=== PATIENT | female | born 1995 | race Caucasian/White ===

== ENCOUNTER 2021-06-18 14:24 | Emergency (ER) | payer BC ==
[~2021-06-18] VITALS: Ht 157.5 cm; Wt 66.5 kg
[2021-06-18 14:33] VITALS: BP 141/98
--- NOTE | 2021-06-18 14:47 | RAD ---
EXAM: Chest, single view. HISTORY: Chest pain. COMPARISON: None. FINDINGS: A frontal view of the chest is obtained. There is no infiltrate, pleural effusion or pneumo thorax. The heart is normal in size. IMPRESSION: No acute pulmonary finding. Electronically signed by: Diana Lares MD (06/18/2021 2:44 PM) [id number]
--- NOTE | 2021-06-18 14:48 | EKG ---
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
--- NOTE | 2021-06-18 14:56 | PHYS DOC ---
Past History Past Surgical History: No Surgical History Alcohol Use: None General Adult EDM: Chief Complaint: CHEST PAIN HPI: HPI: 25-year-old female presents with chest pain. She started to have chest pain at 7 PM last night while she was just sitting around. It was an intense pressure sensation just below her breast in the middle of her chest. She rated it an 8 out of 10 at that time. She thought taking some ibuprofen and it would go away, but the pain continued all night. The patient did not sleep well and the pain continued until 7 AM this morning. She is pain-free at this time. When she talked to her primary physician they advise she come here for evaluation. Patient has no previous cardiac history. She has had heartburn in the past but this had a very different feeling. She had some shortness of breath but no diaphoresis. Her symptoms are resolved at this time. She has no other specific complaints. Review of Systems: Review of Systems: Constitutional: Denies fever or chills Eyes: Denies change in visual acuity HENT: Denies nasal congestion or sore throat Respiratory: Denies cough or shortness of breath Cardiovascular: Chest pain GI: One episode of vomiting. Denies abdominal pain, nausea, bloody stools or diarrhea : Denies dysuria Musculoskeletal: Denies back pain or joint pain Integument: Denies rash Neurologic: Denies headache, focal weakness or sensory changes Endocrine: Denies polyuria or polydipsia Lymphatic: Denies swollen glands Psychiatric: Denies depression or anxiety Allergies: Allergies: Allergies Coded Allergies Type Severity Reaction Last Updated Verified No Known Drug Allergies 06/18/21 No Physical Exam: PE: Constitutional: Well developed, well nourished, no acute distress, non-toxic appearance. [] HENT: Normocephalic, atraumatic, bilateral external ears normal, oropharynx moist, no oral exudates, nose normal. [] Eyes: PERRLA, EOMI, conjunctiva normal, no discharge. [] Neck: Normal range of motion, no tenderness, supple, no stridor. [] Cardiovascular: Heart rate 92, regular rhythm, no murmur [] Lungs & Thorax: Bilateral breath sounds clear to auscultation [] Abdomen: Bowel sounds normal, soft, no tenderness, no masses, no pulsatile masses. [] Skin: Warm, dry, no erythema, no rash. [] Back: No tenderness, no CVA tenderness. [] Extremities: No tenderness, no cyanosis, no clubbing, ROM intact, no edema. [] Neurologic: Alert and oriented X 3, normal motor function, normal sensory function, no focal deficits noted. [] Psychologic: Affect normal, judgement normal, mood normal. [] Current Patient Data: Vital Signs: Vital Signs Date Time Temp Pulse Resp B/P (MAP) Pulse Ox O2 Delivery O2 Flow Rate FiO2 06/18/21 14:33 97.2 93 16 141/98 (112) 95 EKG: EKG: [] Radiology/Procedures: Radiology/Procedures: [] Impressions: EXAM: Chest, single view. HISTORY: Chest pain. COMPARISON: None. FINDINGS: A frontal view of the chest is obtained. There is no infiltrate, pleural effusion or pneumothorax. The heart is normal in size. IMPRESSION: No acute pulmonary finding. Electronically signed by: Diana Lares MD (06/18/2021 2:44 PM) [id number] DICTATED AND SIGNED BY: DIANA LARES MD DATE: 06/18/21 1444 CC: GHASSAN LEONG DO; YAO BONE MD ~MTH0 0 Heart Score: C/O Chest Pain: Yes HEART Score for Chest Pain: HEART Score for Chest Pain Response (Comments) Value History Slighlty/Non-Suspicious 0 ECG Normal 0 Age < 45 0 Risk Factors No Risk Factors 0 Troponin < Normal Limit 0 Total 0 Risk Factors: Risk Factors: DM, Current or recent (<one month) smoker, HTN, HLP, family history of CAD, obesity. Risk Scores: Score 0 - 3: 2.5% MACE over next 6 weeks - Discharge Home Score 4 - 6: 20.3% MACE over next 6 weeks - Admit for Clinical Observation Score 7 - 10: 72.7% MACE over next 6 weeks - Early Invasive Strategies Course & Med Decision Making: Course & Med Decision Making Pertinent Labs and Imaging studies reviewed. (See chart for details) The patient's EKG is unremarkable. Her chest x-ray is unremarkable. Her labs are unremarkable. Her troponin is negative. The patient is not having any pain now. This does not appear to be cardiopulmonary in nature. I have discussed with the patient the possibility of gastrointestinal source or musculoskeletal. She will follow-up with her primary care physician as needed. She is stable f or discharge at this time. [] Dragon Disclaimer: Dragon Disclaimer: This electronic medical record was generated, in whole or in part, using a voice recognition dictation system. Departure Departure: Impression: Primary Impression: Chest pain Qualified Codes: R07.9 - Chest pain, unspecified Disposition: HOME / SELF CARE / HOMELESS Condition: STABLE Referrals: YAO BONE MD (PCP) Patient Instructions: Chest Pain (Nonspecific), [id number] GHASSAN LEONG DO Jun 18, 2021 14:56
[2021-06-18 15:09] LABS: BASO # 0.1 x10^3/uL (0.0-0.2); BASO % 1 % (0-3); EOS # 0.1 x10^3/uL (0.0-0.7); EOS % 1 % (0-3); HEMATOCRIT 43.6 % (36.0-47.0); HEMOGLOBIN 14.4 g/dL (12.0-15.5); LYMPH # 2.2 x10^3/uL (1.0-4.8); LYMPH % 23 % (24-48); MEAN CORPUSCULAR HEMOGLOBIN 29 pg (25-35); MEAN CORPUSCULAR HGB CONC 33 g/dL (31-37); MEAN CORPUSCULAR VOLUME 89 fL (79-100); MONO % 11 % (0-9); NEUT # 6.3 x10^3uL (1.8-7.7); NEUT % 64 % (31-73); PLATELET COUNT 257 x10^3/uL (140-400); RED BLOOD COUNT 4.92 x10^6/uL (3.50-5.40); RED CELL DISTRIBUTION WIDTH 13.5 % (11.5-14.5); WHITE BLOOD COUNT 9.7 x10^3/uL (4.0-11.0)
[2021-06-18 15:21] LABS: BARBITURATES NEG (NEG); BENZODIAZEPINES NEG (NEG); CANNABINOIDS NEG (NEG); COCAINE NEG (NEG); METHADONE NEG (NEG); OPIATES NEG (NEG); PHENCYCLIDINE NEG (NEG)
[2021-06-18 15:23] LABS: CALCIUM 9.1 mg/dL (8.5-10.1); CREATININE 0.8 mg/dL (0.6-1.0); GFR 88.1; POTASSIUM 3.4 mmol/L (3.5-5.1)
[2021-06-18 15:25] LABS: ALBUMIN 3.9 g/dL (3.4-5.0); ALBUMIN/GLOBULIN RATIO 1.2 (1.0-1.7); TOTAL BILIRUBIN 0.3 mg/dL (0.2-1.0); TOTAL PROTEIN 7.1 g/dL (6.4-8.2)
[2021-06-18 15:26] LABS: AMPHETAMINE/METHAMPHETAMINE NEG (NEG)
[2021-06-18 15:32] LABS: BILIRUBIN,URINE NEG (NEG); CLARITY,URINE CLEAR; COLOR,URINE YELLOW; GLUCOSE,URINE NEG (NEG)
[2021-06-18 15:33] LABS: BACTERIA,URINE FEW /HPF (0-FEW); NITRITE,URINE NEG (NEG); RBC,URINE 0 /HPF (0-2); SQUAMOUS EPITHELIAL CELL,UR FEW /LPF; UROBILINOGEN,URINE 0.2 mg/dL (0.2 mg/dL)
== END 2021-06-18 15:56 | disposition home or self-care (01) ==
LOC: ER 14:24
DX: R07.89 Other chest pain (principal); R12 Heartburn; R06.02 Shortness of breath
CPT/HCPCS: 36415; 71045; 80053; 80307; 81001; 81025; 84484; 85025; 87077; 87086; 93005; 99285

== ENCOUNTER 2021-06-24 02:56 | Emergency (ER) | payer BC ==
[~2021-06-24] VITALS: Ht 157.5 cm; Wt 68.1 kg
--- NOTE | 2021-06-24 02:58 | PHYS DOC ---
Past History Past Medical History: GERD Past Surgical History: No Surgical History Alcohol Use: None General Adult HPI: HPI: ".. I was here the other day.. and got a lot of blood work.. and everything was negative... they said it was probably GERDl... I dont want to repeat the lab work.. I think it is the same thing... I seen Dr. Bone... " Patient is a 25 year old female who presents with above hx and complaints GERD and severe chest pain after eating a cookie and [employer] chicken nuggets. Pt. reported seen on 06/18 for similar presentation. Patient denies any history of previous cardiac disorder. No history of dysrhythmia. No history of tarry stools. Has had problems with reflux. Has had problems with fatty foods. There is family history of gallbladder disease and Crohn's with her mother. There is a history of intestinal disorder with her father. Patient is adopted. 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 Has had a recent bout of impetigo which caused a breakout on her face. Patient denies any history of immunosuppression. No history of trauma. Patient has never had a colonoscopy or EGD. Review of Systems: Review of Systems: Constitutional: Denies fever or chills Eyes: Denies change in visual acuity HENT: Denies nasal congestion or sore throat Respiratory: Denies cough or shortness of breath Cardiovascular: Denies chest pain or edema GI: Complains of epigastric abdominal pain, nausea., vomiting, bloody stools or diarrhea : Denies dysuria Musculoskeletal: Denies back pain or joint pain Integument: Denies rash Neurologic: Denies headache, focal weakness or sensory changes Endocrine: Denies polyuria or polydipsia Lymphatic: Denies swollen glands Psychiatric: Denies depression or anxiety Family History: Family History: parents had intestinal disorders Current Medications: Current Meds: See nursing for home meds Allergies: Allergies: Allergies Coded Allergies Type Severity Reaction Last Updated Verified No Known Drug Allergies 06/18/21 No Physical Exam: PE: Constitutional: Well developed, well nourished, no acute distress, non-toxic appearance. [] HENT: Normocephalic, atraumatic, bilateral external ears normal, oropharynx faye st, no oral exudates, nose normal. [] Eyes: PERRLA, EOMI, conjunctiva normal, no discharge. [] Neck: Normal range of motion, no tenderness, supple, no stridor. [] Cardiovascular:Heart rate regular rhythm, no murmur [] Lungs & Thorax: Bilateral breath sounds clear to auscultation [] Abdomen: Bowel sounds normal, soft, no tenderness, no masses, no pulsatile masses. [] Skin: Warm, dry, no erythema, no rash. [] Back: No tenderness, no CVA tenderness. [] Extremities: No tenderness, no cyanosis, no clubbing, ROM intact, no edema. [] Neurologic: Alert and oriented X 3, normal motor function, normal sensory function, no focal deficits noted. [] Psychologic: Affect normal, judgement normal, mood normal. [] Current Patient Data: Labs: Refused labs EKG: EKG: My interpretation EKG shows a sinus rhythm at 62 bpm. No acute morphology. Time of EKG is 0302 hrs. [] Radiology/Procedures: Radiology/Procedures: Reviewed chest x-ray from prior visit. Heart Score: C/O Chest Pain: Yes HEART Score for Chest Pain: HEART Score for Chest Pain Response (Comments) Value History Slighlty/Non-Suspicious 0 ECG Normal 0 Age < 45 0 Risk Factors No Risk Factors 0 Total 0 Risk Factors: Risk Factors: DM, Current or recent (<one month) smoker, HTN, HLP, family history of CAD, obesity. Risk Scores: Score 0 - 3: 2.5% MACE over next 6 weeks - Discharge Home Score 4 - 6: 20.3% MACE over next 6 weeks - Admit for Clinical Observation Score 7 - 10: 72.7% MACE over next 6 weeks - Early Invasive Strategies Course & Med Decision Making: Course & Med Decision Making Pertinent Labs and Imaging studies reviewed. (See chart for details) Patient refuses lab draws or x-rays at this time. Patient stay on a clear fluid diet for the next 2 days. No solids. No milk products. Push clear fluids such as Jell-O, 7-Up, grape juice, apple juice, Gatorade. Take meds previous directed. Follow-up with primary. Pain resolved at time of discharge. Impression: 1. Epigastric pain 2. GERD 3. History of skin infection-cellulitis [] Gerardo Disclaimer: Gerardo Disclaimer: This electronic medical record was generated, in whole or in part, using a voice recognition dictation system. Departure Departure: Referrals: YAO BONE MD (PCP) Scripts Famotidine (PEPCID) 20 Mg Tablet 1 TAB PO BID for GERD, #60 TAB 3 Refills Prov: DIONISIO MARTINEZ MD 06/24/21 DIONISIO MARTINEZ MD Jun 24, 2021 02:58
[2021-06-24] MEDS ORDERED: SUCRALFATE 1 GM TABLET. PO ONE (03:15)
[2021-06-24] MEDS ORDERED: FAMOTIDINE 20 MG TABLET PO ONE (03:15)
[2021-06-24] MEDS ORDERED: ACETAMINOPHEN 500 MG TABLET PO ONE (03:15)
[2021-06-24] MEDS ORDERED: MAGNESIUM HYDROXIDE 2,400 MG/30 ML ORAL.SUSP. PO ONE (03:15)
[2021-06-24] MEDS ORDERED: ONDANSETRON ODT 4 MG TAB.RAPDIS PO ONE (03:30)
[2021-06-24] MEDS ORDERED: FAMO-63 PO (04:06)
[2021-06-24 04:25] VITALS: BP 136/76
--- NOTE | 2021-06-24 07:45 | EKG ---
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
== END 2021-06-24 04:28 | disposition home or self-care (01) ==
LOC: ER 02:56
DX: K21.9 Gastro-esophageal reflux disease without esophagitis (principal); R10.13 Epigastric pain
CPT/HCPCS: 93005; 99284; Q0162